=== PATIENT | male | born 1970 | race Caucasian/White ===

== ENCOUNTER 2024-08-27 08:29 | Emergency (ER) | payer OTHER ==
[~2024-08-27] VITALS: Ht 180.3 cm; Wt 88.6 kg
[2024-08-27 08:44] VITALS: O2SAT 100
[2024-08-27] MEDS ORDERED: METF-414 MT (09:27)
[2024-08-27] MEDS ORDERED: GABA800T97 MT (09:27)
[2024-08-27 09:41] VITALS: BP 155/93; PULSE 98; RESP 14; TEMP 36.8; O2SAT 99
[2024-08-27] MEDS: HYDROCODONE/ACETAMINOPHEN 5/325MG TABLET PO ONE (09:54)
== END 2024-08-27 09:54 | disposition home or self-care (01) ==
LOC: ER 08:29
DX: Z76.0 Encounter for issue of repeat prescription (principal); E11.42 Type 2 diabetes mellitus with diabetic polyneuropathy; I10 Essential (primary) hypertension; E78.00 Pure hypercholesterolemia, unspecified; Z88.6 Allergy status to analgesic agent; Z86.73 Personal history of transient ischemic attack (TIA), and cerebral infarction without residual deficits
CPT/HCPCS: 82962; 99282